=== PATIENT | female | born 1950 ===

== ENCOUNTER 2017-05-13 06:35 | Day surgery (SDC) | payer OTHER ==
[~2017-05-13 06:35] MED LIST: ASA81 MG PO; ATENOLOL25 MG PO; AVAPRO300 MG PO; CRESTOR10 MG PO; DUI500 PO; HUMALOG100 UNIT/1; HUMULIN N100 UNIT/2; HYDRALAZINE HCL10 MG PO; ISOSORBIDE MONO60 MG PO; LEVO-T25 MCG PO; TRAM1TAB98 PO
[2017-05-13] MEDS ORDERED: TRAM1TAB98 PO (09:21)
[2017-05-13] MEDS ORDERED: DUI500 PO (09:21)
== END 2017-05-13 11:40 | disposition home or self-care (01) ==
LOC: CIR.AMB 06:35
DX: G56.01 Carpal tunnel syndrome, right upper limb (principal); M65.841 Other synovitis and tenosynovitis, right hand

== ENCOUNTER 2022-12-05 07:07 | Outpatient (CLI) | payer OTHER | END 2022-12-05 07:20 | disposition home or self-care (01) | LOC: TOM 07:07 | PROVIDERS: ATTEND Internal Medicine Gastroenterology | DX: K56.50 Intestinal adhesions [bands], unspecified as to partial versus complete obstruction (principal); R19.5 Other fecal abnormalities ==